=== PATIENT | female | born 1940 | race Caucasian/White ===

== ENCOUNTER → 2016-09-24 | Outpatient (CLI) | payer MEDICARE ==
[~2016-09-24] MED LIST: ANAG0.5C3 PO; ASPI81TA7 PO; ATOR10TA PO; CETI10CA PO; CHOL400T PO; CONJUGATED ESTROGENS TOP; FLUTICASONE NASAL SPRAY; LEVO150T PO; MAGN250T PO; MONT10TA21 PO; OMEP20CA6 PO; PATADAY EYE DROPS OU; RANI150T15 PO; ZOLP5TAB PO; [UNRECOGNIZED DRUG - OTHER] PO
[2016-09-24 09:29] LABS: MEAN CORPUSCULAR HGB CONC 32.6 g/dL (31.0-37.0); MEAN CORPUSCULAR VOLUME 89 FL (80-100); MEAN PLATELET VOLUME 10.4 FL (6.0-9.5); PLATELET COUNT 229 10^3uL (150-450); WHITE BLOOD COUNT 9.65 10^3uL (4.0-11.0)
[2016-09-24 10:26] LABS: ANISOCYTOSIS SLIGHT; BAND NEUTROPHILS % 0 % (0-6); EOSINOPHILS % 3 % (0-4); LYMPHOCYTES # 1.4 #; MONOCYTES # 0.7 #; MONOCYTES % 8 % (3-11); RBC MORPH SEE REFERENCE (NORMAL); SEGMENTED NEUTROPHILS % 70 % (51-67); TOTAL CELLS COUNTED 100
== END ==
LOC: LAB 09:19
PROVIDERS: ATTEND Internal Medicine Hematology & Oncology
DX: D45 Polycythemia vera (principal); D75.1 Secondary polycythemia
CPT/HCPCS: 36415; 85025